=== PATIENT | male | born 1955 | race Hispanic/Latino ===

== ENCOUNTER 2016-12-01 14:21 | Emergency (ER) | payer MEDICARE, MEDICAID ==
[~2016-12-01] VITALS: Ht 167.6 cm; Wt 70.0 kg
[~2016-12-01 14:21] MED LIST: AMLODIPINE5 MG PO; AMOXICILLIN500 MG PO; AMOXICILLIN875 MG PO; ASPIRIN EC81 MG PO; ATENOLOL25 MG PO; AUGMENTIN500 MG OR; BACTRIM DS1 TAB PO; FLONASE NASAL50 MCG; GLUCOPHAGE500 MG OR; INHALER IN; LANTUS100 MG/ML SC; LISINOPRIL10 MG PO; METFORMIN500 MG PO; NAPROSYN500 MG PO; NOVOLOG FL100 UNIT/M SC; NOVOLOG SC; OMEPRAZOLE40 MG PO; PRAVACHOL40 MG PO; PROAIR HFA IN; ZPAK PO
[2016-12-01 14:55] LABS: HEMATOCRIT 35.6 % (39.0-50.0); HEMOGLOBIN 12.3 g/dl (14.0-18.0); IMMATURE GRANULOCYTES 0.4 % (0.0-1.0); MEAN CELL VOLUME 92.5 fL CALC (80.0-100.0); MEAN CORPUSCULAR HGB 31.9 pG CALC (26.0-32.0); MEAN CORPUSCULAR HGB CONC 34.6 g/L CALC (32.0-36.0); NEUT# 6.97 thou/uL (1.82-7.42); RED BLOOD COUNT 3.85 mill/uL (4.70-6.10); RED CELL DISTRI WIDTH 12.7 % (11.5-15.5)
[2016-12-01 15:06] LABS: ALBUMIN 4.1 g/dL (3.2-5.0); ALKALINE PHOSPHATASE 64 u/l (38-126); ANION GAP 18 (6-22 (CALC)); BILIRUBIN, TOTAL 0.4 mg/dL (0.0-1.4); BUN 35 mg/dL (8-23); BUN/CREATININE RATIO 22 (12-20 (CALC)); CALCIUM 9.4 mg/dL (8.4-10.2); CARBON DIOXIDE 26 mmol/l (22-30); CHLORIDE 102 mmol/l (95-108); CREATININE 1.6 mg/dL (0.7-1.3); GFR 44 ML/MIN (>=60 (CALC)); GFR FOR AFR.AMER. 53 ML/MIN (>=60 (CALC)); GLUCOSE 183 mg/dL (82-115); POTASSIUM 3.8 mmol/l (3.5-5.1); SGOT/AST 35 u/l (19-48); SGPT/ALT 36 u/l (11-66); SODIUM 142 mmol/l (137-146); TOTAL PROTEIN 7.4 g/dL (6.3-8.2)
[2016-12-01 15:24] LABS: MYOGLOBIN 534 ng/mL (0 - 121)
[2016-12-01] MEDS ORDERED: NOVOLOG FL100 UNIT/M SC (16:29)
[2016-12-01] MEDS ORDERED: NAPROXEN250 MG PO (16:30)
[2016-12-01] MEDS ORDERED: HYDROCHLOROT25 MG PO (16:31)
[2016-12-01] MEDS ORDERED: LISINOPRIL10 MG PO (16:31)
[2016-12-01] MEDS ORDERED: AMLODIPINE5 MG PO (16:33)
[2016-12-01] MEDS ORDERED: LASIX 20 MG20 MG/TAB PO (16:33)
[2016-12-01] MEDS ORDERED: METFORMIN500 MG PO (16:34)
[2016-12-01] MEDS ORDERED: CYCLOBENZAPR5 MG PO (16:34)
[2016-12-01 16:54] LABS: URINE BILIRUBIN - DIPSTICK NEGATIVE (NEGATIVE); URINE BLOOD DIPSTICK NEGATIVE (NEGATIVE); URINE CLARITY CLEAR; URINE COLOR YELLOW; URINE GLUCOSE - DIPSTICK NEGATIVE (NEGATIVE); URINE KETONE NEGATIVE (NEGATIVE); URINE LEUK ESTERASE NEGATIVE (NEGATIVE); URINE NITRITE - DIPSTICK NEGATIVE (Negative); URINE PH 5.5 (4.5-8.0); URINE PROTEIN - DIPSTICK NEGATIVE (NEG-TRACE); URINE SPECIFIC GRAVITY 1.025; URINE UROBILINOGEN - DIPSTICK 0.2 E.U./dL (0.2)
[2016-12-01 16:57] LABS: BARBITURATES NEGATIVE (NEGATIVE); COCAINE NEGATIVE (NEGATIVE); METHADONE NEGATIVE (NEGATIVE); OXCYCODONE NEGATIVE (NEGATIVE); TETRAHYDROCANNABIONOL NEGATIVE (NEGATIVE); TRICYLIC ANTIDEPRESSANTS NEGATIVE (NEGATIVE)
[2016-12-01 17:47] VITALS: BP 146/80
== END 2016-12-01 17:47 | disposition home or self-care (01) ==
LOC: ED 14:21 → ED-I 17:01 → ED 17:47
PROVIDERS: Emergency Medicine
DX: R55 Syncope and collapse (principal); I10 Essential (primary) hypertension; E11.9 Type 2 diabetes mellitus without complications; J45.909 Unspecified asthma, uncomplicated; R53.1 Weakness; R42 Dizziness and giddiness; Z86.73 Personal history of transient ischemic attack (TIA), and cerebral infarction without residual deficits

== ENCOUNTER 2016-12-21 10:28 | Inpatient (IN) | payer MEDICARE, MEDICAID ==
[~2016-12-21] VITALS: Ht 152.4 cm; Wt 69.0 kg
[~2016-12-21 10:28] MED LIST changes: +CYCLOBENZAPR5 MG PO; +HYDROCHLOROT25 MG PO; +LASIX 20 MG20 MG/TAB PO; +NAPROXEN250 MG PO
--- NOTE | 2016-12-21 10:34 | NUR ---
BP 80/40'S NOTED DURING TRIAGE. MD AT BEDSIDE. # 20 IV STARTED IN RIGHT AC, NS BOLUS INFUSING, PT PLACED IN SUPINE POSITION. DENIES DIZZINESS, WEAKNESS, SOB, AND CHEST PAIN AT THIS TIME. WILL CONTINUE TO MONITOR.
--- NOTE | 2016-12-21 10:34 | NUR ---
PT TO ROOM 9 GAIT STEADY.
[2016-12-21] MEDS ORDERED: MOTRIN800 MG PO (10:42)
[2016-12-21] MEDS ORDERED: ZOFRAN ODT4 MG PO (10:42)
[2016-12-21] MEDS ORDERED: LISINOP/HCTZ1 TAB PO (10:51)
[2016-12-21] MEDS ORDERED: LIPITOR40 M1 PO (10:51)
[2016-12-21] MEDS ORDERED: PRAVASTATIN20 MG PO (10:52)
[2016-12-21] MEDS ORDERED: AMLODIPINE5 MG PO (10:52)
[2016-12-21 10:58] LABS: HEMATOCRIT 41.4 % (39.0-50.0); HEMOGLOBIN 14.4 g/dl (14.0-18.0); IMMATURE GRANULOCYTES 0.4 % (0.0-1.0); MEAN CELL VOLUME 92.4 fL CALC (80.0-100.0); MEAN CORPUSCULAR HGB 32.1 pG CALC (26.0-32.0); MEAN CORPUSCULAR HGB CONC 34.8 g/L CALC (32.0-36.0); NEUT# 5.53 thou/uL (1.82-7.42); RED BLOOD COUNT 4.48 mill/uL (4.70-6.10); RED CELL DISTRI WIDTH 12.1 % (11.5-15.5)
[2016-12-21 11:10] LABS: BILIRUBIN, TOTAL 0.7 mg/dL (0.0-1.4); CALCIUM 10.5 mg/dL (8.4-10.2); CREATININE 4.6 mg/dL (0.7-1.3); TOTAL PROTEIN 9.1 g/dL (6.3-8.2)
[2016-12-21 11:13] LABS: POTASSIUM 5.2 mmol/l (3.5-5.1)
--- NOTE | 2016-12-21 12:00 | NUR ---
PT RESTING ON STRETCHER. DENIES NAUSEA. DENIES PAIN. BP UP TO 104/64. RESP EVEN AND UNLABORED. SKIN WARM AND DRY. PT A&O X3. PT IN STABLE CONDITION. FRIEND AT BEDSIDE. CALL LIGHT WITHIN REACH.
--- NOTE | 2016-12-21 13:39 | NUR ---
REPORT TO HECTOR URBINA.
--- NOTE | 2016-12-21 13:45 | NUR ---
PT ARRIVED TO FLOOR AT THIS TIME VIA STRECHER ACCOMPANIED BY YVONNE RN; PT AMB TO SCALE AND BED; PT ORIENTED TO ROOM AND CALL LIGHT SYSTEM; PT STATES HE HAS PAIN IN THROAT; IVF INFUSING TO #20 TO RAC; IV SITE APPEARS HEALTHY AT THIS TIME; ASSESSMENT COMPLETED; TRANSLATION COMPLETED BY BOONE ADAME; PT DENIES ANY NEEDS AT THIS TIME; CALL LIGHT WITHIN REACH; WILL CONTINUE TO MONITOR
[2016-12-21 14:01] VITALS: BP 124/59
[2016-12-21 16:00] VITALS: BP 111/54
[2016-12-21] MEDS ORDERED: NOVOLIN 70/30 SC ×2 (16:12)
--- NOTE | 2016-12-21 17:00 | NUR ---
PT BLOOD SUGAR READING 52 AT THIS TIME; ORANGE JUICE X2 WITH SUGAR GIVEN AT THIS TIME; PT DENIES FEELING DIZZY OR CLAMMY AT THIS TIME; WILL RECHECK SUGAR SOON
--- NOTE | 2016-12-21 17:45 | NUR ---
PT BS READING 68 AT THIS TIME; MEAL TRAY PROVIDED; PT EDUCATED ON IMPORTANCE OF EATING MEAL; PT VERBALIZES UNDERSTANDING; WILL RECHECK BS;
--- NOTE | 2016-12-21 19:00 | NUR ---
BS READING 140 AT THIS TIME; REPORT GIVEN TO CIARA ALANIZ
--- NOTE | 2016-12-21 19:29 | NUR ---
PT. IS SITTING UP IN BED WITH NO DISTRESS NOTED. DENIES NEEDS/PAIN, OR NAUSEA. ASSESSMENT COMPLETED. IV SITE PATENT TO RAC AND INFUSING ORDERED IVF. PO FLUIDS OFFERED. URINAL EMPTIED OF 250 ML OF CELAR YELLOW URINE. UPDATED WITH POC, VERBALIZES UNDERSTANDING. ENCOURAGED TO CALL FOR ANY NEEDS. CALL LIGHT IS IN REACH. WILL CONTINUE TO MONITOR.
[2016-12-21 19:45] VITALS: BP 127/65
[2016-12-21 20:00] VITALS: BP 115/58
[2016-12-21 21:00] VITALS: BP 115/58
--- NOTE | 2016-12-21 21:30 | NUR ---
SPOKE WITH DAUGHTER Saniya BENTON OF PT. AND UPDATED HER WITH POC AND DX, VERBALIZES UNDERSTANDING. PT'S BS IS 152, PT. REFUSES ORDERED INSULIN AT THIS TIME. PT. REPORTS HX; OF ASTHMA AND WOULD LIKE INHALOR OR NEB TX, WILL CALL MD FOR FURTHER ORDERS. CALL LIGHT IS IN REACH.
--- NOTE | 2016-12-21 23:19 | NUR ---
PT. RESTING IN BED WITH EYES CLOSED, NO DISTRESS NOTED. RESP EVEN AND UNLABORED. CALL LIGHT IS IN REACH. WILL CONITINUE TO MONITOR.
[2016-12-22] VITALS (7 sets, daily range): BP systolic 108–136; BP diastolic 61–86
--- NOTE | 2016-12-22 03:12 | NUR ---
PT. RESTING IN BED WITH EYES CLOSED, NO DISTRESS NOTED. RESP EVEN AND UNLABORED. CALL LIGHT IS IN REACH.
--- NOTE | 2016-12-22 05:30 | NUR ---
PT. RESTING IN BED WITH NO DISTRESS NOTED. SCHEDULED MEDICATION GIVEN. URINAL EMPTIED. PT. DENIES NEEDS. CALL LIGHT IS IN REACH.
[2016-12-22 05:51] LABS: HEMATOCRIT 38.3 % (39.0-50.0); HEMOGLOBIN 13.1 g/dl (14.0-18.0); IMMATURE GRANULOCYTES 0.5 % (0.0-1.0); MEAN CELL VOLUME 93.9 fL CALC (80.0-100.0); MEAN CORPUSCULAR HGB 32.1 pG CALC (26.0-32.0); MEAN CORPUSCULAR HGB CONC 34.2 g/L CALC (32.0-36.0); NEUT# 4.92 thou/uL (1.82-7.42); RED BLOOD COUNT 4.08 mill/uL (4.70-6.10); RED CELL DISTRI WIDTH 12.2 % (11.5-15.5)
[2016-12-22 06:16] LABS: CALCIUM 8.9 mg/dL (8.4-10.2); CHOLESTEROL HDL RATIO 3.5 (<4.4 (CALC)); CREATININE 2.2 mg/dL (0.7-1.3)
[2016-12-22 06:22] LABS: POTASSIUM 6.8 mmol/l (3.5-5.1)
--- NOTE | 2016-12-22 06:27 | NUR ---
DR. CHARLTON NOTIFIED OF CRITICAL HIGH POTASSIUM AT 6.8, NEW ORDERS RECEIVED AND TO BE CARRIED OUT.
--- NOTE | 2016-12-22 07:10 | NUR ---
REPORT RECIEVED FROM CIARA ALANIZ; PT RESTING IN BED; PT MEDICATED BY CIARA ALANIZ WITH KAYEXELATE; PT DENIES ANY N/V AT THIS TIME; PT ENCOURAGED TO CALL FOR ANY ASSISTANCE NEEDED; CALL LIGHT WITHIN REACH; WILL CONTINUE TO MONITOR
[2016-12-22 12:00] LABS: CALCIUM 8.4 mg/dL (8.4-10.2); CREATININE 1.7 mg/dL (0.7-1.3)
[2016-12-22 12:05] LABS: POTASSIUM 6.7 mmol/l (3.5-5.1)
--- NOTE | 2016-12-22 12:40 | NUR ---
PT MEDICATED WITH D50% AND NOVOLIN R PER DR LI FOR K-6.4; PT EDUCATED ON TX; PT DENIES ANY OTHER NEEDS AT THIS TIME; WILL RECHECK K+ LATER; CALL LIGHT WITHIN REACH; TELE IN PLACE; WILL CONTINUE TO MONITOR
--- NOTE | 2016-12-22 16:00 | NUR ---
PT RESTING IN BED; NO S/S OF DISTRESS NOTED; IVF INFUSING AT PRESCRIBED RATE; IVF INFUSION AT PRESCRIBED RATE; PT DENIES ANY OTHER NEEDS AT THIS TIME; CALL LIGHT WITHIN REACH; WILL CONTINUE TO MONITOR
[2016-12-22 17:52] LABS: CALCIUM 8.9 mg/dL (8.4-10.2); CREATININE 1.6 mg/dL (0.7-1.3)
[2016-12-22 17:55] LABS: POTASSIUM 5.9 mmol/l (3.5-5.1)
--- NOTE | 2016-12-22 19:30 | NUR ---
PT. SITTING UP IN BED WITH NO DISTRESS NOTED. RESP EVEN AND UNLABORED. DENIES NEEDS/PAIN. ASSESSMENT COMPLETED. IV SITE PATENT AND ORDERED IVF HUNG. UPDATED WITH POC. CALL LIGHT IS IN REACH. URINAL EMPTIED. CALL LIGHT IS IN REACH.
--- NOTE | 2016-12-22 22:55 | NUR ---
NOTIFIED DR. CHARLTON OF PT'S POTASSIUM 5.5, NEW ORDERS RECEIVED AND TO BE CARRIED OUT.
--- NOTE | 2016-12-22 23:37 | NUR ---
PT. UPDATED WITH LAB LEVEL AND GIVEN ORDERED KAYEXELATE AT THIS TIME FOR POTASSIUM OF 5.5. PT. DENIES FURTHER NEEDS. CALL LIGHT IS IN REACH.
[2016-12-23 03:08] VITALS: BP 115/64
--- NOTE | 2016-12-23 04:00 | NUR ---
PT. RESTING IN BED WITH NO DISTRESS NOTED. DENIES NEEDS. CALL LIGHT IS IN REACH.
--- NOTE | 2016-12-23 05:34 | NUR ---
PT. RESTING IN BED WITH NO DISTRESS NOTED. SCHED MED GIVEN ALONG WITH NEW BAG OF NS HUNG. URINAL EMPTIED. ENCOURAGED TO CALL FOR ANY NEEDS. VOICES NO COMPLAINTS. CALL LIGHT IS IN REACH.
[2016-12-23 05:53] LABS: HEMATOCRIT 35.4 % (39.0-50.0); HEMOGLOBIN 12.3 g/dl (14.0-18.0); IMMATURE GRANULOCYTES 0.5 % (0.0-1.0); MEAN CELL VOLUME 93.7 fL CALC (80.0-100.0); MEAN CORPUSCULAR HGB 32.5 pG CALC (26.0-32.0); MEAN CORPUSCULAR HGB CONC 34.7 g/L CALC (32.0-36.0); NEUT# 2.62 thou/uL (1.82-7.42); RED BLOOD COUNT 3.78 mill/uL (4.70-6.10); RED CELL DISTRI WIDTH 11.9 % (11.5-15.5)
[2016-12-23 06:04] LABS: BUN 28 mg/dL (8-23); BUN/CREATININE RATIO 24 (12-20 (CALC)); CALCIUM 8.9 mg/dL (8.4-10.2); CARBON DIOXIDE 24 mmol/l (22-30); CHLORIDE 111 mmol/l (95-108); CREATININE 1.2 mg/dL (0.7-1.3); GFR > 60 ML/MIN (>=60 (CALC)); GFR FOR AFR.AMER. > 60 ML/MIN (>=60 (CALC)); GLUCOSE 95 mg/dL (82-115); SODIUM 143 mmol/l (137-146)
[2016-12-23 06:12] LABS: ANION GAP 14 (6-22 (CALC)); POTASSIUM 5.5 mmol/l (3.5-5.1)
[2016-12-23 07:59] VITALS: BP 126/77
--- NOTE | 2016-12-23 08:30 | NUR ---
PT SITTING ON SIDE OF BED; NO COMPLAINTS VOICED; IVF INFUSING WITHOUT DIFFICULTY; TELE MONITOR IN PLACE; WILL CONTINUE TO MONITOR
--- NOTE | 2016-12-23 13:55 | NUR ---
Discharge instructions given. Patient verbalizes understanding of same. Discharged in stable condition via Wheelchair to Home with family. All belongings sent with pt.
== END 2016-12-23 13:54 | disposition home or self-care (01) | DRG 684 ==
LOC: ENPENDDIS → ED 10:28 → ED-I 12:19 → ED 12:44 → MS2 12:45
PROVIDERS: Emergency Medicine; Nurse Practitioner Family; ADMIT Internal Medicine; ATTEND Internal Medicine
DX: N17.9 Acute kidney failure, unspecified (principal); E11.22 Type 2 diabetes mellitus with diabetic chronic kidney disease; I95.9 Hypotension, unspecified; E87.5 Hyperkalemia; E11.65 Type 2 diabetes mellitus with hyperglycemia; I12.9 Hypertensive chronic kidney disease with stage 1 through stage 4 chronic kidney disease, or unspecified chronic kidney disease; N18.3 Chronic kidney disease, stage 3 (moderate); E78.5 Hyperlipidemia, unspecified; E86.0 Dehydration; T46.4X5A Adverse effect of angiotensin-converting-enzyme inhibitors, initial encounter; Z86.73 Personal history of transient ischemic attack (TIA), and cerebral infarction without residual deficits; Z79.4 Long term (current) use of insulin; Z91.14 Patient's other noncompliance with medication regimen